=== PATIENT | male | born 1985 | race Two or more races ===

== ENCOUNTER 2018-06-11 08:49 | Emergency (ER) | payer OTHER, MEDICAID ==
[~2018-06-11] VITALS: Ht 172.7 cm; Wt 59.0 kg
[2018-06-11 08:49] VITALS: BP 136/73
[2018-06-11] MEDS ORDERED: ONDANSETRON HCL/PF 4 MG/2 ML VIAL ONE (09:20)
[2018-06-11] MEDS ORDERED: ONDANSETRON HCL/PF 4 MG/2 ML VIAL IV ONE (09:30)
[2018-06-11] MEDS ORDERED: IV NS 0.9% 1,000 ML BAG IV ONE (09:30)
--- NOTE | 2018-06-11 10:12 | NUR ---
Patient discharged in custody in stable condition. Written and verbal after care instructions given. Patient verbalizes understanding of instruction.
== END 2018-06-11 10:13 ==
LOC: ER 08:56
DX: F11.23 Opioid dependence with withdrawal (principal)
CPT/HCPCS: 96374; 99283; A4606; J2405; J7030